=== PATIENT | female | born 1940 | race Caucasian/White ===

== ENCOUNTER 2016-10-06 04:49 | Emergency (ER) | payer MEDICARE ==
[~2016-10-06] VITALS: Ht 144.8 cm; Wt 54.4 kg
[2016-10-06 05:12] VITALS: BP 155/84
--- NOTE | 2016-10-06 05:22 | PHYS DOC ---
Past Medical History Past Medical History: Arthritis, Diabetes-Type II, High Cholesterol, Hypertension Past Surgical History: Appendectomy, Cholecystectomy, Tonsillectomy Alcohol Use: None Drug Use: None Adult General Chief Complaint Chief Complaint: PAIN CONTROL HPI HPI Patient is a 76 year old female who presents with complaint of lower extremity pain. Patient states that she has history of arthritis and has had pain for the past 2 years with both of her legs. Patient denies any recent trauma. Patient states that her legs became more sore over the past 2 days prompting her to come to the emergency department for evaluation. Patient denies any other associated symptoms. Patient states that her pain is currently 10 out of 10. Patient took Tylenol to help with symptoms with no relief. Patient has been ambulatory since onset of pain. Review of Systems Review of Systems Constitutional: Denies fever or chills [] Eyes: Denies change in visual acuity, redness, or eye pain [] HENT: Denies nasal congestion or sore throat [] Respiratory: Denies cough or shortness of breath [] Cardiovascular: No additional information not addressed in HPI [] GI: Denies abdominal pain, nausea, vomiting, bloody stools or diarrhea [] : Denies dysuria or hematuria [] Musculoskeletal: Bilateral lower extremity pain [] Integument: Denies rash or skin lesions [] Neurologic: Denies headache, focal weakness or sensory changes [] Endocrine: Denies polyuria or polydipsia [] Current Medications Current Medications Current Medications Medications (Trade) Dose Ordered Sig/[facility] Start Time Stop Time Status Last Admin Dose Admin Tramadol HCl (Ultram) 50 mg 1X ONCE 10/06/16 05:30 10/06/16 05:32 DC 10/06/16 05:26 50 MG Allergies Allergies Allergies Coded Allergies Type Severity Reaction Last Updated Verified No Known Drug Allergies 10/06/16 No Physical Exam Physical Exam Constitutional: Alert, afebrile, no acute distress. [] HENT: Normocephalic, atraumatic, bilateral external ears normal, oropharynx moist, no oral exudates, nose normal. [] Eyes: PERRLA, EOMI, conjunctiva normal, no discharge. [] Neck: Normal range of motion, no tenderness, supple, no stridor. [] Cardiovascular:Heart rate regular rhythm, no murmur [] Lungs & Thorax: Bilateral breath sounds clear to auscultation [] Abdomen: Bowel sounds normal, soft, no tenderness, no masses, no pulsatile masses. [] Skin: Warm, dry, no erythema, no rash. [] Back: No tenderness, no CVA tenderness. [] Extremities: No obvious deformities to bilateral lower extremities, no significant soft tissue swelling, full range of motion present, mild tenderness along bilateral calves and thigh muscles. [] Neurologic: Alert and oriented X 3, normal motor function, normal sensory function, no focal deficits noted. [] Current Patient Data Vital Signs Vital Signs Date Time Temp Pulse Resp B/P Pulse Ox O2 Delivery O2 Flow Rate FiO2 10/06/16 05:12 97.5 91 20 155/84 100 Room Air 97.5 EKG EKG Not performed [] Radiology/Procedures Radiology/Procedures Not performed [] Course & Med Decision Making Course & Med Decision Making Pertinent Labs and Imaging studies reviewed. (See chart for details) The patient was treated with tramadol in the emergency department. Patient is ambulatory with a nonfocal during gait. Patient has normal pulses in her extremities. Patient's symptoms appear consistent with musculoskeletal pain. The patient will continue on tramadol therapy with recommended follow-up in one week. Advised return to emergency department for any worsening symptoms. Patient voiced understanding and in agreement with treatment plan. Dragon Disclaimer Dragon Disclaimer This electronic medical record was generated, in whole or in part, using a voice recognition dictation system. Departure Departure Impression: Primary Impression: Lower extremity pain, bilateral Disposition: 01 HOME, SELF-CARE Condition: IMPROVED Referrals: NON,STAFF (PCP) Patient Instructions: Arthritis, Nonspecific Additional Instructions: Follow-up with your primary doctor in 1 week. Return to emergency department for any worsening symptoms. Scripts Tramadol Hcl 50 Mg Tablet1 Tab PO Q6HRS PRN PAIN #30 TAB Prov:HANS CARTAGENA MD 10/06/16 HANS CARTAGENA MD Oct 06, 2016 05:21
[2016-10-06] MEDS ORDERED: TRAMADOL 50 MG TABLET. PO ONE (05:30)
[2016-10-06] MEDS ORDERED: TRAM50TA PO (05:34)
== END 2016-10-06 06:10 | disposition home or self-care (01) ==
LOC: ER 04:49
DX: M79.605 Pain in left leg (principal); M79.604 Pain in right leg; M13.88 Other specified arthritis, other site; E11.9 Type 2 diabetes mellitus without complications; E78.00 Pure hypercholesterolemia, unspecified; I10 Essential (primary) hypertension
CPT/HCPCS: 99283

== ENCOUNTER 2016-11-20 21:40 | Inpatient (IN) | payer OTHER ==
[~2016-11-20] VITALS: Ht 149.9 cm; Wt 42.2 kg
[~2016-11-20 21:40] MED LIST: TRAM50TA PO
[2016-11-20 22:29] LABS: BASO % 0 % (0-3); EOS % 0 % (0-3); HEMATOCRIT 50.2 % (36.0-47.0); HEMOGLOBIN 16.6 g/dL (12.0-15.5); LYMPH # 0.4 x10^3/uL (1.0-4.8); LYMPH % 2 % (24-48); MEAN CORPUSCULAR HEMOGLOBIN 31 pg (25-35); MEAN CORPUSCULAR HGB CONC 33 g/dL (31-37); MEAN CORPUSCULAR VOLUME 94 fL (79-100); MONO % 8 % (0-9); NEUT % 90 % (31-73); PLATELET COUNT 392 x10^3/uL (140-400); RED BLOOD COUNT 5.33 x10^6/uL (3.50-5.40); RED CELL DISTRIBUTION WIDTH 15.6 % (11.5-14.5); WHITE BLOOD COUNT 20.1 x10^3/uL (4.0-11.0)
[2016-11-20 22:30] LABS: BILIRUBIN,URINE LARGE (NEG); GLUCOSE,URINE 100 mg/dL (NEG); NITRITE,URINE NEGATIVE (NEG); PROTEIN,URINE 100 mg/dL (NEG-TRACE)
[2016-11-20] MEDS ORDERED: IV NORMAL SALINE 1000ML BAG 1,000 ML IV SCH ×2 (22:30→23:06)
[2016-11-20 22:43] LABS: BACTERIA,URINE 0 /HPF (0-FEW); RBC,URINE OCC /HPF (0-2); SQUAMOUS EPITHELIAL CELL,UR FEW /LPF
[2016-11-20 22:44] LABS: CALCIUM 10.3 mg/dL (8.5-10.1); CREATININE 1.5 mg/dL (0.6-1.0); GFR 33.7; POTASSIUM 3.4 mmol/L (3.5-5.1)
[2016-11-20 22:50] LABS: ALBUMIN 3.2 g/dL (3.4-5.0); DIRECT BILIRUBIN 0.4 mg/dL (0.0-0.2); TOTAL BILIRUBIN 1.3 mg/dL (0.2-1.0); TOTAL PROTEIN 6.7 g/dL (6.4-8.2)
[2016-11-20] MEDS ORDERED: ACETAMINOPHEN 650 MG SUPP.RECT. PR ONE (23:00)
--- NOTE | 2016-11-20 23:02 | RAD ---
PROCEDURE CT head without contrast dated 11/20/2016. HISTORY Altered mental status poor historian. TECHNIQUE Contiguous axial imaging of the head was performed from skull base to vertex.Exposure: One or more of the following individualized dose reduction techniques were utilized for this exam: 1. Automated exposure control. 2. Adjustment of the mA and/or kV according to patient size. 3. Use of iterative reconstruction technique. COMPARISON None. FINDINGS Ventricles and sulci moderately prominent for age. No midline shift or mass effect. Mild to moderate patchy low density in the deep/subcortical periventricular white matter. No hemorrhage or extra-axial collection. Posterior fossa and brainstem unremarkable. Subtotal opacification of the bilateral ethmoid air cells and sphenoid sinuses. Mastoid air cells are clear. No acute calvarial abnormality. IMPRESSION - No evidence of acute intracranial abnormality. - Moderate chronic small vessel ischemic changes and atrophy. Electronically signed by: Robert Conti (Nov 20, 2016 23:00:33)
[2016-11-20] MEDS ORDERED: TOBRAMYCIN PER PHARMACY MC PRN (23:15)
[2016-11-20] MEDS ORDERED: ACETAMINOPHEN 325 MG TABLET. PO PRN (23:15)
[2016-11-20] MEDS ORDERED: ONDANSETRON PF 4 MG/2 ML VIAL. IV PRN (23:15)
--- NOTE | 2016-11-20 23:20 | PHYS DOC ---
Past Medical History Past Medical History: Arthritis, Diabetes-Type II, High Cholesterol, Hypertension Past Surgical History: Appendectomy, Cholecystectomy, Tonsillectomy Alcohol Use: None Drug Use: None Adult General Chief Complaint Chief Complaint: SHORTNESS OF BREATH HPI HPI Patient is a 76 year old female who presents here today secondary to altered mental status while at the group home. According to the nursing facility patient is able to verbalize her name. She is basically alert awake and oriented to self at baseline. She does have a history of dementia. Patient came in today by EMS secondary to altered mental status that started approximately 9: 00 today. Patient does have a history significant for hypertension, no history of COPD, no history of diabetes, Further history is unobtainable secondary to the patient's dementia and unresponsiveness. Physical exam is unobtainable secondary to the patient not following commands. Patient's physical exam was significant for patient moving all extremities well to painful stimuli. Patient has no facial asymmetry. Patient does have poor dentition. Patient's pupils were 4 mm and reactive to 2 mm bilaterally equal. Patient's extraocular motions were all intact. Patient does grimace to painful stimuli. Patient does not follow commands and does not verbalize while in the ER. Patient is tachycardic and heart rate of 135. Utilizing carotid sinus massage the heart rate slowed down to approximately 120 with distinct P waves associated with each QRS complex. Patient does not appear to be in atrial flutter or atrial fibrillation at this time. I believe the patient is an sinus tach secondary to sepsis, pneumonia. Patient ER hospital course was significant for a chest x-ray which reveals a likely left lower lobe infiltrate. She has blunting of her left hemidiaphragm with what appears to be air bronchograms behind the left hemidiaphragm. Asians white count elevated at greater than 20,000 with 90 segs. Patient's lactic acid is greater than 5.0. Patient's troponin was also slightly elevated. While in the ER patient was given a liter of normal saline which has resulted in her heart rate coming down to approximately 1:15. Patient's rectal temperature was 100.2. Patient also given aspirin for her elevated troponin. Patient was started on antibiotics for hcap. Patient was started on Zosyn as well as tobramycin. The case was discussed with Dr. Guajardo who agrees with the current plan. Patient will be admitted to the hospital. Critical care time 35 minutes reutilized and treatment and management of this patient's sepsis, hemodynamic instability with tachycardia. Elevated troponin, elevated lactic acid. Review of Systems Review of Systems Unobtainable secondary to the patient's nonverbal/dementia. Current Medications Current Medications Current Medications Medications (Trade) Dose Ordered Sig/[facility] Start Time Stop Time Status Last Admin Dose Admin Acetaminophen (Tylenol) 650 mg PRN Q4HRS PRN 11/20/16 23:15 11/21/16 23:14 UNV Acetaminophen 650 mg 650 mg 1X ONCE 11/20/16 23:00 11/20/16 23:01 DC Aspirin 300 mg 300 mg 1X ONCE 11/20/16 23:30 11/20/16 23:31 Ondansetron HCl 4 mg 4 mg PRN Q8HRS PRN 11/20/16 23:15 11/21/16 23:14 UNV Piperacillin Sod/ Tazobactam Sod/ Sodium Chloride (Zosyn/Iv Sodium Chloride 0.9% 50ml) 50 ml @ 100 mls/hr Q6HRS 11/21/16 06:00 Piperacillin Sod/ Tazobactam Sod/ Sodium Chloride (Zosyn/Iv Sodium Chloride 0.9% 100ml) 100 ml @ 200 mls/hr 1X ONCE 11/20/16 23:30 11/20/16 23:59 Sodium Chloride (Iv Sodium Chloride 0.9% 1000ml Bag) 1,000 ml @ 100 mls/hr Q10H 11/20/16 23:06 11/21/16 23:05 UNV Tobramycin Sulfate (Nebcin Per Pharmacy) 1 each PRN DAILY PRN 11/20/16 23:15 Allergies Allergies Allergies Coded Allergies Type Severity Reaction Last Updated Verified No Known Drug Allergies 10/06/16 No Physical Exam Physical Exam Constitutional: Cachectic nonresponsive HENT: Normocephalic, atraumatic Eyes: PERRLA, EOMI, conjunctiva normal, no discharge. [] Neck: Normal range of motion, Cardiovascular: Tachycardic at 135 Lungs & Thorax: Coarse breath sounds bilaterally. Abdomen: Bowel sounds normal, soft, no tenderness, no masses, no pulsatile masses. [] Skin: Warm, dry, no erythema, no rash. [] Back: No tenderness, no CVA tenderness. [] Extremities: No tenderness, no cyanosis, no clubbing, ROM intact, no edema. [] Neurologic: Alert and moving all extremities. Psychologic unable to assess. Current Patient Data Vital Signs Vital Signs Date Time Temp Pulse Resp B/P Pulse Ox O2 Delivery O2 Flow Rate FiO2 11/20/16 22:28 100.2 130 24 108/71 93 Room Air 100.2 Lab Values Laboratory Tests Test 11/20/16 22:00 11/20/16 22:15 Urine Collection Type U cath Urine Color Halina Urine Clarity Clear Urine pH 6.0 Urine Specific Robert >=1.030 Urine Protein 100mg/dL (NEG-TRACE) Urine Glucose (UA) 100mg/dL (NEG) Urine Ketones (Stick) 15mg/dL (NEG) Urine Blood Negative (NEG) Urine Nitrite Negative (NEG) Urine Bilirubin Large (NEG) Urine Urobilinogen Dipstick 1.0mg/dL (0.2 mg/dL) Urine Leukocyte Esterase Negative (NEG) Urine RBC Occ/HPF (0-2) Urine WBC 1-4/HPF (0-4) Urine Squamous Epithelial Cells Few/LPF Urine Bacteria 0/HPF (0-FEW) Urine Hyaline Casts Moderate/HPF Urine Mucus Marked/LPF White Blood Count 20.1x10^3/uL (4.0-11.0) H Red Blood Count 5.33x10^6/uL (3.50-5.40) Hemoglobin 16.6g/dL (12.0-15.5) H Hematocrit 50.2% (36.0-47.0) H Mean Corpuscular Volume 94fL (79-100) Mean Corpuscular Hemoglobin 31pg (25-35) Mean Corpuscular Hemoglobin Concent 33g/dL (31-37) Red Cell Distribution Width 15.6% (11.5-14.5) H Platelet Count 392x10^3/uL (140-400) Neutrophils (%) (Auto) 90% (31-73) H Lymphocytes (%) (Auto) 2% (24-48) L Monocytes (%) (Auto) 8% (0-9) Eosinophils (%) (Auto) 0% (0-3) Basophils (%) (Auto) 0% (0-3) Neutrophils # (Auto) 18.1x10^3uL (1.8-7.7) H Lymphocytes # (Auto) 0.4x10^3/uL (1.0-4.8) L Monocytes # (Auto) 1.6x10^3/uL (0.0-1.1) H Eosinophils # (Auto) 0.0x10^3/uL (0.0-0.7) Basophils # (Auto) 0.0x10^3/uL (0.0-0.2) Platelet Estimate Pending Sodium Level 153mmol/L (136-145) H Potassium Level 3.4mmol/L (3.5-5.1) L Chloride Level 110mmol/L (98-107) H Carbon Dioxide Level 18mmol/L (21-32) L Anion Gap 25 (6-14) H Blood Urea Nitrogen 33mg/dL (7-20) H Creatinine 1.5mg/dL (0.6-1.0) H Estimated GFR (Cockcroft-Gault) 33.7 Glucose Level 240mg/dL (70-99) H Lactic Acid Level 5.9mmol/L (0.4-2.0) *H Calcium Level 10.3mg/dL (8.5-10.1) H Total Bilirubin 1.3mg/dL (0.2-1.0) H Direct Bilirubin 0.4mg/dL (0.0-0.2) H Aspartate Amino Transferase (AST) 63U/L (15-37) H Alanine Aminotransferase (ALT) 87U/L (14-59) H Alkaline Phosphatase 122U/L (46-116) H Troponin I Quantitative 0.265ng/mL (0.000-0.055) Total Protein 6.7g/dL (6.4-8.2) Albumin 3.2g/dL (3.4-5.0) L Laboratory Tests 11/20/16 22:15 Laboratory Tests 11/20/16 22:15 EKG EKG [] Radiology/Procedures Radiology/Procedures [] Course & Med Decision Making Course & Med Decision Making Pertinent Labs and Imaging studies reviewed. (See chart for details) [] Dragon Disclaimer Dragon Disclaimer This electronic medical record was generated, in whole or in part, using a voice recognition dictation system. Departure Departure Impression: Primary Impression: Sepsis Additional Impressions: Pneumonia Elevated troponin Elevated lactic acid level HCAP (healthcare-associated pneumonia) Disposition: 09 ADMITTED INPATIENT Admitting Physician: Deny Guajardo Condition: GUARDED Referrals: NO PCP (PCP) Problem Qualifiers JACQUES HAYNES MD Nov 20, 2016 23:20
[2016-11-20] MEDS ORDERED: PIPERACILLIN/TAZOBACTAM 4.5 GM in IV NORMAL SALINE 100ML 100 ML IV ONE (23:30)
[2016-11-20] MEDS ORDERED: ASPIRIN 300 MG SUPP.RECT PR ONE (23:30)
[2016-11-21] VITALS (8 sets, daily range): BP systolic 101–156; BP diastolic 68–99
[2016-11-21] MEDS ORDERED: TOBRAMYCIN SULFATE IV ONE ×2
[2016-11-21] MEDS ORDERED: IV NORMAL SALINE 1000ML BAG 1,000 ML IV SCH
[2016-11-21] MEDS ORDERED: NORMAL SALINE IV ONE ×2
--- NOTE | 2016-11-21 00:11 | ACF ---
Admission Forms Criteria SEPSIS and OTHER FEBRILE ILLNESS, W/O FOCAL INFECTION Clinical Indications for Admission to Inpatient Care ( Place 'X' for any and all applicable criteria): Admission is indicated for ANY ONE of the following (1)(2)(3)(4): [ ] I. Bacteremia [X]II. Suspected or identified specific infection requiring hospitalization (eg, meningitis, endocarditis) [ ]III. Hemodynamic instability [ ]IV. Altered mental status [ ]V. Failure or unavailability of outpatient antimicrobial treatment [ ]. Hypoxemia [ ]VII. Seizures [ ]VIII. High-risk febrile neutropenia [ ]IX. Need for parenteral antibiotic in patient who is likely to abuse vascular access device (eg, injection drug user) [A](7) [ ]X. Temperature greater than 104.9 degrees F (40.5 degrees C) (oral) [ ]XI. Inpatient admission required rather than observation care because of ANY ONE of the following: [ ]1) Specific infection identified that is too severe for outpatient treatment or observation care trial [ ]2) Metabolic disorder (eg, hypoglycemia, hyperglycemia, metabolic acidosis) that is severe or persistent [ ]3) Temperature greater than 103.1 degrees F (39.5 degrees C) ( oral) that is not responsive to observation care treatment [ ]4) IV fluid to replace significant ongoing (eg, for over 24 hours) losses (> 3 L/m2 per day) [ ]5) Supplemental oxygen or respiratory treatments for over 24 hours that is performable only in acute inpatient setting [ ]6) Parenteral nutrition regimen need that must be implemented on inpatient basis [ ]7) Strict or protective (eg, laminar flow) isolation [ ]8) Other condition, treatment or monitoring requiring inpatient admission Extended stay beyond goal length of stay may be needed for(1)(3) [ ]a) Sepsis or septic shock(22) [ ]b) Positive blood cultures [ ]c) Insufficient oral intake [ ]d) High-risk febrile neutropenia(29)(30) [ ]e) Continued fever and clinical instability [ ]f) Clinically active comorbid illness (e.g,heart failure, renal failure , diabetes) The original [employer] content created by [employer] has been revised. The portions of the content which have been revised are identified through the use of italic text or in bold, and [employer] has neither reviewed nor approved the modified material. All other unmodified content is copyright [facility]. Please see references footnoted in the original [facility] edition 2016 Admission Criteria Met?: Yes VICKY CARDENAS Nov 21, 2016 00:11
[2016-11-21 00:24] LABS: BODY TEMP ABG 100.2 DEG; CORRECTED PCO2 ABG 26 mmHg; CORRECTED PH ABG 7.41; CORRECTED PO2 ABG 85 mmHg; HCO3 ABG 16 mmol/L (21-28); SAT O2 ABG 95 % (92-99)
[2016-11-21 00:25] LABS: PCO2 ABG 25 mmHg (35-46); PH ABG 7.43 (7.35-7.45); PO2 ABG 80 mmHg (65-108)
[2016-11-21 00:50] LABS: OBC FLU VALID
[2016-11-21 03:49] LABS: PLT ESTIMATE ADEQUATE (ADEQUATE); TOXIC VACUOLATION SLIGHT
[2016-11-21 05:09] LABS: BASO % 0 % (0-3); EOS % 0 % (0-3); HEMATOCRIT 46.3 % (36.0-47.0); HEMOGLOBIN 14.9 g/dL (12.0-15.5); LYMPH # 0.8 x10^3/uL (1.0-4.8); LYMPH % 5 % (24-48); MEAN CORPUSCULAR HEMOGLOBIN 31 pg (25-35); MEAN CORPUSCULAR HGB CONC 32 g/dL (31-37); MEAN CORPUSCULAR VOLUME 96 fL (79-100); MONO % 11 % (0-9); NEUT % 84 % (31-73); PLATELET COUNT 299 x10^3/uL (140-400); RED BLOOD COUNT 4.82 x10^6/uL (3.50-5.40); RED CELL DISTRIBUTION WIDTH 15.9 % (11.5-14.5); WHITE BLOOD COUNT 17.7 x10^3/uL (4.0-11.0)
[2016-11-21 05:36] LABS: CALCIUM 8.5 mg/dL (8.5-10.1); GFR 53.8
[2016-11-21 05:39] LABS: POTASSIUM 2.6 mmol/L (3.5-5.1)
[2016-11-21] MEDS ORDERED: POTASSIUM CL 30MEQ D5-0.45NACL 1,000 ML IV SCH (06:00)
[2016-11-21] MEDS: PIPERACILLIN/TAZOBACTAM 2.25 GM in IV NORMAL SALINE 50ML 50 ML IV SCH ×3 (06:07→17:06)
--- NOTE | 2016-11-21 06:45 | EKG ---
[facility] [address] [place] [address] Test Date: 2016-11-20 Test Time: 21:50:54 Pat Name: ABISAI LUI Department: Room: 203 1 Gender: F Program Medical Director: : 1940 Requested By: JACQUES HAYNES Order Number: [id number] Reading MD: Jorge L Rubalcava Measurements Intervals [place] Rate: 134 P: 39 OR: 112 QRS: -24 QRSD: 80 T: 143 QT: 292 QTc: 442 Interpretive Statements SINUS TACHYCARDIA VENTRICULAR PREMATURE COMPLEX(ES) LEFT ATRIAL ABNORMALITY LEFTWARD AXIS LVH WITH REPOLARIZATION ABNORMALITY QRS(T) CONTOUR ABNORMALITY CONSISTENT WITH ANTERIOR INFARCT PROBABLY OLD CONSISTENT WITH INFEROLATERAL INFARCT AGE UNDETERMINED RI6.01 Unconfirmed report Electronically Signed On 11-21-2016 14:16:31 [employer] by Jorge L Rubalcava
--- NOTE | 2016-11-21 07:31 | RAD ---
EXAM: Chest one view. HISTORY: Shortness of breath, altered mental status, hypertension. COMPARISON: 03/13/2013. FINDINGS: A frontal view of the chest is obtained. The inspiration is somewhat small with left basilar atelectasis. There is no pneumothorax or pleural effusion. The heart is not enlarged. There are atherosclerotic calcifications of the aorta. Cholecystectomy clips are noted. IMPRESSION: 1. Small inspiration with left basilar atelectasis versus mild infiltrate.
--- NOTE | 2016-11-21 08:46 | PDOC ---
Provider Note Provider Note [id number] LEIGHA LUIS MD Nov 21, 2016 08:46
--- NOTE | 2016-11-21 09:52 | RAD ---
Ultrasound of the right upper quadrant of the abdomen 11/21/2016 Clinical history: Elevated transaminase levels. Technique: A real-time ultrasound examination of the right upper quadrant of the abdomen was performed. Multiple images were obtained. Findings: The liver is normal in size measuring 12.2 cm in length. No focal abnormality of the liver is seen. The gallbladder is not visualized consistent with a cholecystectomy. The common bile duct is within the upper limits of normal given the patient's age and the history of a cholecystectomy measuring 9 mm in diameter. The visualized portions of the pancreas and right kidney are within normal limits. Impression: Status post cholecystectomy. Otherwise negative study.
--- NOTE | 2016-11-21 10:08 | PDOC2 ---
ZOEY OV RN BARIATRIC 11/21/16 1008: CARDIAC CONSULT DATE OF CONSULT Date of Consult DATE: 11/21/16 TIME: 10:07 REASON FOR CONSULT Reason for Consult: elevated troponin REFERRING PHYSICIAN Referring Physician: Dr. Philippe Boston SOURCE Source: Chart review HISTORY OF PRESENT ILLNESS HISTORY OF PRESENT ILLNESS 76 year old female admitted through the ER with dyspnea and altered mental status reported by her nursing facility. Patient non-verbal and without family present. On admission, she had a lactate level of 5.9 with a WBC of 20.1 and K of 2.6. Troponin peaked @ 0.383 and EKG without acute changes, though in atrial fibrillation. Reason for Visit: elevated troponin PAST MEDICAL HISTORY Cardiovascular: HTN, Hyperlipidemia CENTRAL NERVOUS SYSTEM: Dementia GI: Constipation, Other (dysphagia; failure to thrive) Psych: Depression Musculoskeletal: Osteoarthritis, Other (fall history) Endocrine: Diabetes PAST SURGICAL HISTORY Past Surgical History: Appendectomy, Cholecystectomy, Tonsillectomy FAMILY HISTORY Family History: Family History Unknown SOCIAL HISTORY Lives: Jail ([facility]) CURRENT MEDICATIONS CURRENT MEDICATIONS Current Medications Medications (Trade) Dose Ordered Sig/Kip Route PRN Reason Start Time Stop Time Status Last Admin Dose Admin Sodium Chloride (Iv Sodium Chloride 0.9% 1000ml Bag) 1,000 ml @ 1,000 mls/hr Q1H IV 11/20/16 22:30 11/20/16 23:29 DC 11/20/16 22:24 Acetaminophen 650 mg 650 mg 1X ONCE MA 11/20/16 23:00 11/20/16 23:01 DC 11/20/16 23:29 Piperacillin Sod/ Tazobactam Sod/ Sodium Chloride (Zosyn/Iv Sodium Chloride 0.9% 100ml) 100 ml @ 200 mls/hr 1X ONCE IV 11/20/16 23:30 11/20/16 23:59 DC 11/20/16 23:30 Tobramycin Sulfate (Nebcin Per Pharmacy) 1 each PRN DAILY PRN MC SEE COMMENTS 11/20/16 23:15 11/21/16 03:25 Aspirin 300 mg 300 mg 1X ONCE MA 11/20/16 23:30 11/20/16 23:31 DC 11/20/16 23:29 Piperacillin Sod/ Tazobactam Sod 2.25 gm/Sodium Chloride 50 ml @ 100 mls/hr Q6HRS IV 11/21/16 06:00 11/21/16 06:07 Sodium Chloride 1,000 ml @ 100 mls/hr Q10H IV 11/20/16 23:06 11/21/16 05:43 DC 11/21/16 02:54 Tobramycin Sulfate 250 mg/ Sodium Chloride 106.25 ml @ 106.25 mls/hr 1X ONCE IV 11/21/16 00:00 11/21/16 00:59 DC 11/20/16 23:31 Sodium Chloride 1,000 ml @ 620 mls/hr Q1H37M IV 11/21/16 00:00 11/21/16 01:00 DC 11/21/16 00:00 Potassium Chloride/Dextrose/ Sod Cl (KCl 30meq In D5-0.45nacl) 1,000 ml @ 75 mls/hr [id number] IV 11/21/16 06:00 11/21/16 08:44 DC 11/21/16 06:08 ALLERGIES ALLERGIES: Coded Allergies: No Known Drug Allergies (Unverified , 10/06/16) ROS Review of System unobtainable as non-verbal PHYSICAL EXAM General: Alert, Other (frail, elderly) HEENT: Atraumatic, Other (poor dentition) Lungs: Other (decreased in bases anteriorly) Heart: Normal S1, Normal S2, No murmurs, Other (IRRR; tele: PAF with RVR) Abdomen: Soft Extremities: No edema Skin: No rashes Neuro: Other (non-verbal) Psych/Mental Status: Other (unable to assess) MUSCULOSKELETAL: Osteoarthritic changes both hands VITALS VITALS Vital Signs Date Time Temp Pulse Resp B/P Pulse Ox O2 Delivery O2 Flow Rate FiO2 11/21/16 09:35 Room Air 11/21/16 07:00 97.9 119 20 136/73 96 2.0 97.9 LABS Lab: Laboratory Tests Test 11/20/16 22:00 11/20/16 22:15 11/21/16 00:04 11/21/16 00:15 Urine Collection Type U cath Urine Color Halina Urine Clarity Clear Urine pH 6.0 Urine Specific [place] >=1.030 Urine Protein 100mg/dL (NEG-TRACE) Urine Glucose (UA) 100mg/dL (NEG) Urine Ketones (Stick) 15mg/dL (NEG) Urine Blood Negative (NEG) Urine Nitrite Negative (NEG) Urine Bilirubin Large (NEG) Urine Urobilinogen Dipstick 1.0mg/dL (0.2 mg/dL) Urine Leukocyte Esterase Negative (NEG) Urine RBC Occ/HPF (0-2) Urine WBC 1-4/HPF (0-4) Urine Squamous Epithelial Cells Few/LPF Urine Bacteria 0/HPF (0-FEW) Urine Hyaline Casts Moderate/HPF Urine Mucus Marked/LPF White Blood Count 20.1x10^3/uL (4.0-11.0) Red Blood Count 5.33x10^6/uL (3.50-5.40) Hemoglobin 16.6g/dL (12.0-15.5) Hematocrit 50.2% (36.0-47.0) Mean Corpuscular Volume 94fL (79-100) Mean Corpuscular Hemoglobin 31pg (25-35) Mean Corpuscular Hemoglobin Concent 33g/dL (31-37) Red Cell Distribution Width 15.6% (11.5-14.5) Platelet Count 392x10^3/uL (140-400) Neutrophils (%) (Auto) 90% (31-73) Lymphocytes (%) (Auto) 2% (24-48) Monocytes (%) (Auto) 8% (0-9) Eosinophils (%) (Auto) 0% (0-3) Basophils (%) (Auto) 0% (0-3) Neutrophils # (Auto) 18.1x10^3uL (1.8-7.7) Lymphocytes # (Auto) 0.4x10^3/uL (1.0-4.8) Monocytes # (Auto) 1.6x10^3/uL (0.0-1.1) Eosinophils # (Auto) 0.0x10^3/uL (0.0-0.7) Basophils # (Auto) 0.0x10^3/uL (0.0-0.2) Segmented Neutrophils % 92% (35-66) Band Neutrophils % 1% (0-9) Lymphocytes % 2% (24-48) Monocytes % 5% (0-10) Toxic Vacuolation Slight Platelet Estimate Adequate (ADEQUATE) Sodium Level 153mmol/L (136-145) Potassium Level 3.4mmol/L (3.5-5.1) Chloride Level 110mmol/L (98-107) Carbon Dioxide Level 18mmol/L (21-32) Anion Gap 25 (6-14) Blood Urea Nitrogen 33mg/dL (7-20) Creatinine 1.5mg/dL (0.6-1.0) Estimated GFR (Cockcroft-Gault) 33.7 Glucose Level 240mg/dL (70-99) Lactic Acid Level 5.9mmol/L (0.4-2.0) Calcium Level 10.3mg/dL (8.5-10.1) Total Bilirubin 1.3mg/dL (0.2-1.0) Direct Bilirubin 0.4mg/dL (0.0-0.2) Aspartate Amino Transf (AST/SGOT) 63U/L (15-37) Alanine Aminotransferase (ALT/SGPT) 87U/L (14-59) Alkaline Phosphatase 122U/L (46-116) Troponin I Quantitative 0.265ng/mL (0.000-0.055) Total Protein 6.7g/dL (6.4-8.2) Albumin 3.2g/dL (3.4-5.0) O2 Saturation 95% (92-99) Arterial Blood pH 7.43 (7.35-7.45) Arterial Blood pH (Temp corrected) 7.41 Arterial Blood pCO2 at Patient Temp 25mmHg (35-46) Arterial Blood pCO2 (Temp correct) 26mmHg Arterial Blood pO2 at Patient Temp 80mmHg (65-108) Arterial Blood pO2 (Temp corrected) 85mmHg Arterial Blood HCO3 16mmol/L (21-28) Arterial Blood Base Excess -6mmol/L (-3-3) FiO2 28.0 Influenza Type A Antigen Negative (NEGATIVE) Influenza Type B Antigen Negative (NEGATIVE) Test 11/21/16 01:30 11/21/16 04:55 Lactic Acid Level 2.7mmol/L (0.4-2.0) White Blood Count 17.7x10^3/uL (4.0-11.0) Red Blood Count 4.82x10^6/uL (3.50-5.40) Hemoglobin 14.9g/dL (12.0-15.5) Hematocrit 46.3% (36.0-47.0) Mean Corpuscular Volume 96fL (79-100) Mean Corpuscular Hemoglobin 31pg (25-35) Mean Corpuscular Hemoglobin Concent 32g/dL (31-37) Red Cell Distribution Width 15.9% (11.5-14.5) Platelet Count 299x10^3/uL (140-400) Neutrophils (%) (Auto) 84% (31-73) Lymphocytes (%) (Auto) 5% (24-48) Monocytes (%) (Auto) 11% (0-9) Eosinophils (%) (Auto) 0% (0-3) Basophils (%) (Auto) 0% (0-3) Neutrophils # (Auto) 14.9x10^3uL (1.8-7.7) Lymphocytes # (Auto) 0.8x10^3/uL (1.0-4.8) Monocytes # (Auto) 2.0x10^3/uL (0.0-1.1) Eosinophils # (Auto) 0.0x10^3/uL (0.0-0.7) Basophils # (Auto) 0.0x10^3/uL (0.0-0.2) Sodium Level 152mmol/L (136-145) Potassium Level 2.6mmol/L (3.5-5.1) Chloride Level 117mmol/L (98-107) Carbon Dioxide Level 20mmol/L (21-32) Anion Gap 15 (6-14) Blood Urea Nitrogen 27mg/dL (7-20) Creatinine 1.0mg/dL (0.6-1.0) Estimated GFR (Cockcroft-Gault) 53.8 Glucose Level 183mg/dL (70-99) Calcium Level 8.5mg/dL (8.5-10.1) Troponin I Quantitative 0.383ng/mL (0.000-0.055) IMAGES IMAGES CXR: FINDINGS: A frontal view of the chest is obtained. The inspiration is somewhat small with left basilar atelectasis. There is no pneumothorax or pleural effusion. The heart is not enlarged. There are atherosclerotic calcifications of the aorta. Cholecystectomy clips are noted. IMPRESSION: 1. Small inspiration with left basilar atelectasis versus mild infiltrate. EKG EKG no acute changes ASSESSMENT/PLAN ASSESSMENT/PLAN 1. NSTEMI, likely demand mediated in the setting of elevated lactate level with ? of pneumonia ASA supp in ER yesterday evening; start QHS for now low dose beta-blockers IV echo to evaluate LV function and assess for valvular heart disease given current functional capacity, not a candidate for aggressive intervention 2. PAF with RVR ? new; occurring in the setting of hypokalemia and hypomagnesemia rate control with IV beta-blockers [id number] = 5 corresponding to high risk (6.7%) of stroke however, with fall risk, poor functional capacity - will use aspirin, full strength, for now 3. HTN controlled 4. dementia with history of failure to thrive 5. DM, II per primary service Problems: LIANNE NEVES MD 11/21/16 2237: CARDIAC CONSULT ALLERGIES ALLERGIES: Coded Allergies: No Known Drug Allergies (Unverified , 10/06/16) ASSESSMENT/PLAN ASSESSMENT/PLAN Pt. seen and examined. Agree with above FACILITY SUPERVISOR note. 76 y.o woman with acute mental status changes and sepsis syndrome. On cardiac exam she is tachycardic Has tonic clonic movements. Appears to respond to one step commands at times. labs/meds reviewed. supportive care. No further cardiac testing unless new input from family at which point, could consider non-invasive stress testing. limited echo images due to poor pt. tolerance, consider repeat limited echo when more stable. consider neurology eval to r/o seizures etc. Thanks for consult. Will follow along. Poor prognosis overall. Problems: ZOEY VO APRN Nov 21, 2016 10:08 LIANNE NEVES MD Nov 21, 2016 22:37
[2016-11-21] MEDS ORDERED: MAGNESIUM SULFATE 2GM 50 ML IV ONE (11:00)
[2016-11-21] MEDS: POTASSIUM CL 20MEQ D5-0.9%NACL 1,000 ML IV SCH ×2 (11:06→21:53)
[2016-11-21] MEDS: METOPROLOL TARTRATE 5 MG/5 ML VIAL. IVP SCH ×2 (11:10→17:16)
[2016-11-21] MEDS ORDERED: SULFUR HEXAFLUORIDE MICROSPHR 25 MG VIAL. IVP ONE ×2 (11:14→16:15)
[2016-11-21] MEDS ORDERED: TOBRAMYCIN RANDOM LEVEL. MC ONE (12:00)
--- NOTE | 2016-11-21 12:49 | HP ---
ADMIT DATE: 11/21/2016 CHIEF COMPLAINT: Weakness, confusion, and fever. HISTORY OF PRESENT ILLNESS: A 76-year-old white female, patient of Dr. Delgadillo, who is in a assisted, has no medical records or history available. She was brought because of poor responsiveness and some fever. Chest x-ray was clear. There was no obvious source of fever, and urine was unremarkable as well. She was given some tobramycin and Zosyn, and IV fluids were started, and she remains poorly responsive. PAST MEDICAL HISTORY: No records available. ALLERGIES: No allergies known. MEDICATIONS: The only medication listed was tramadol. SOCIAL HISTORY: Unknown, lives in a assisted. FAMILY HISTORY: Unknown. REVIEW OF SYSTEMS: No other known problems. OBJECTIVE: ENT: Poor dentition with some teeth missing. Mouth is very dry. Pupils were round and reactive. EOM is full. NECK: Revealed no carotid bruits, nodes, or thyroid enlargement. CARDIOVASCULAR: Mild tachycardia. Regular rate. No irregular beat or murmur. ABDOMEN: Soft, benign, and nontender. BACK: Nontender to the flanks. EXTREMITIES: Skin turgor decreased. Pedal pulses are mildly decreased. SKIN: Very dry. NEUROLOGIC: She is nonverbal, does not respond to commands. Moves all extremities, does not respond well to pain. GENITOURINARY AND RECTAL: Deferred. LABORATORY DATA: Laboratory study showed hypernatremia, hypokalemia, and some prerenal azotemia as well. ASSESSMENT: Low-grade fever and evidence of dehydration with hypernatremia and hypokalemia. 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 PLAN: Continue hydration, potassium replacement, and supportive care with Zosyn for now. Pending cultures. LEIGHA LUIS MD DR: JOSELYN/sylvia JOB#: [id number] / [id number]
--- NOTE | 2016-11-21 16:21 | CARD ---
APPROVED REPORT EXAM: Two-dimensional and M-mode echocardiogram with Doppler and color Doppler. Other Information Quality : GoodHR: 81bpm Rhythm : NSR INDICATION Elevated troponin Echo Enhancing Agent Agent/Amount Used: Lumason 3mL 2D DIMENSIONS RVDd2.1 (2.9-3.5cm)Left Atrium(2D)2.6 (1.6-4.0cm) IVSd1.2 (0.7-1.1cm)Aortic Root(2D)2.7 (2.0-3.7cm) LVDd2.9 (3.9-5.9cm)LVOT Diameter2.2 (1.8-2.4cm) PWd1.3 (0.7-1.1cm)LVDs2.2 (2.5-4.0cm) FS (%) 24.3 %SV15.9 ml LVEF(%)50.1 (>50%) Aortic Valve AoV Peak Jassi.225.0cm/sAoV VTI36.9cm AO Peak GR.20.3mmHgLVOT Peak Jassi.119.4cm/s AO Mean GR.8mmHgAVA (VMAX)2.00cm2 AI P 1/2 Ptqm224qx Mitral Valve MV E Peak Gr.10mmHgMV E Mean Gr.2mmHg MV A [id number] Pulmonary Valve PV Peak Yiymvykn575.5cm/s Pulmonary Vein S1 Yplkhmew73.6cm/sD2 Arvakuif35.7cm/s PVa [id number] LEFT VENTRICLE The left ventricle is normal size. There is mild concentric left ventricular hypertrophy. Overall romina ges are suboptimal. Suspect near normal LV function. EF 50%. The distal LV is moderately hypokinetic. Transmitral Doppler flow pattern is Grade I-abnormal relaxation pattern. Suspicious apical echoes ar e noted. Cannot rule out associated thrombus vs. prominent papillary muscle. RIGHT VENTRICLE The right ventricle is normal size. The right ventricular systolic function is normal. ATRIA Not well visualized. AORTIC VALVE The aortic valve is moderately sclerotic and not well visualized. Doppler and Color Flow revealed mil d aortic regurgitation. Doppler and color-flow analysis revealed no significant aortic stenosis. MITRAL VALVE The mitral valve leaflets are thickened. There is no mitral valve stenosis. Doppler and Color Flow re vealed mild mitral regurgitation. TRICUSPID VALVE Not well visualized. Doppler and Color Flow revealed no tricuspid valve regurgitation noted. There is no tricuspid valve stenosis. PULMONIC VALVE The pulmonic valve is not well visualized. Doppler and Color Flow revealed no pulmonic valvular regur gitation. There is no pulmonic valvular stenosis. GREAT VESSELS The aortic root is normal in size. The IVC is normal in size and collapses >50% with inspiration. PERICARDIAL EFFUSION There is no evidence of significant pericardial effusion. Critical Notification Critical Value: No <Conclusion> Overall images are suboptimal. Suspect near normal LV function. EF 50%. The distal LV is moderately hypokinetic. Suspicious apical echoes are noted. Cannot rule out associated thrombus vs. prominent papillary musc le. No clear valvular abnormalities.
[2016-11-21] MEDS ORDERED: ASPIRIN 300 MG SUPP.RECT PR SCH (21:00)
[2016-11-22] MEDS: METOPROLOL TARTRATE 5 MG/5 ML VIAL. IVP SCH ×5 (00:18→23:40)
[2016-11-22] MEDS: PIPERACILLIN/TAZOBACTAM 2.25 GM in IV NORMAL SALINE 50ML 50 ML IV SCH ×3 (00:19→12:32)
[2016-11-22] MEDS: POTASSIUM CL 20MEQ D5-0.9%NACL 1,000 ML IV SCH ×2 (00:45→09:20)
[2016-11-22 03:20] VITALS: BP 170/92
[2016-11-22 07:00] VITALS: BP 184/111
--- NOTE | 2016-11-22 08:40 | PDOC ---
Provider Note Provider Note vss, fair output- K+ 3.3- echo ef 50%- more awake but nonverbal, moves all extrems- no gb on sono- will cintinue hydration re hypernatremia, allow diet- no intervention re dementia baseline LEIGHA LUIS MD Nov 22, 2016 08:40
[2016-11-22 11:00] VITALS: BP 184/98
[2016-11-22 11:22] LABS: CALCIUM 8.3 mg/dL (8.5-10.1); CREATININE 0.6 mg/dL (0.6-1.0); GFR 96.9
--- NOTE | 2016-11-22 11:22 | PDOC ---
ZOEY VO PATCH SANDER 11/22/16 1122: CARDIO Progress Notes Date and Time Date of Service 11/22/2016 Time of Evaluation 1113 Subjective Subjective: Other (non-verbal; turned head in response to name) Vitals Vitals Vital Signs Date Time Temp Pulse Resp B/P Pulse Ox O2 Delivery O2 Flow Rate FiO2 11/22/16 08:00 Nasal Cannula 2.0 11/22/16 07:00 97.4 83 18 184/111 97 97.4 Weight Weight [ ] Input and Output Intake and Output Intake and Output 11/22/16 07:00 Intake Total 100 ml Balance 100 ml Intake Oral 0 ml IV Total 100 ml # Voids 8 Laboratory Labs Laboratory Tests Test 11/21/16 15:50 Potassium Level 3.3mmol/L (3.5-5.1) Microbiology Micro Microbiology 11/20/16 Blood Culture - Preliminary, Resulted NO GROWTH AFTER 1 DAY Physical Exam HEENT: Neck Supple W Full Motion Chest: Symmetric LUNGS: Other (decreased bases anteriorly) Heart: S1S2, irregularly irregular, other (tele: SR with PAF/atrial flutter) Extremities: No Edema Neurology: alert Diagnostic Tests Echocardiogram: Other (LVEF 50%; moderate LV hypokinesis; can not rule out apical thrombus vs prominent papillary muscle) Assessment Assessment 1. NSTEMI, likely demand mediated continue ASA and IV beta-blockers echo with LVEF of 50% and moderately hypokinetic distal LV no further cardiac evaluation planned unless requested by family; patient with poor functional capacity 2. PAF with RVR ? new; occurring in the setting of hypokalemia and hypomagnesemia - Mg replaced; unable to aggressively replace K due to lack of central line and NPO status repeat labs in a.m. rate control with IV beta-blockers [id number] = 5 corresponding to high risk (6.7%) of stroke however, with fall risk, poor functional capacity - will use aspirin, full strength, for now 3. HTN controlled 4. dementia with history of failure to thrive 5. pneumonia abx per primary service LIANNE NEVES MD 11/23/16 1053: CARDIO Progress Notes Plan Plan Late entry for 11/22/2016 Pt. seen and examined. Agree with above PARENT AIDE note. no acute events overnight. still without appropriate mentation supportive care from CV perspective. will be available for any further issues. thx for consult ZOEY VO APRN Nov 22, 2016 11:22 LIANNE NEVES MD Nov 23, 2016 10:53
[2016-11-22 11:25] LABS: POTASSIUM 2.8 mmol/L (3.5-5.1)
[2016-11-22 12:05] LABS: DIRECT BILIRUBIN 0.3 mg/dL (0.0-0.2); TOTAL PROTEIN 6.2 g/dL (6.4-8.2)
[2016-11-22] MEDS: ASPIRIN 81 MG TAB.CHEW PO SCH (12:26)
[2016-11-22] MEDS ORDERED: POTASSIUM CL 30MEQ D5-0.45NACL 1,000 ML IV SCH (12:41)
[2016-11-22] MEDS: POTASSIUM CHLORIDE 30 MEQ in IV DEXTROSE 5 %-0.45 % NACL 1,000 ML IV SCH ×2 (14:01→22:28)
[2016-11-22 15:00] VITALS: BP 172/82
[2016-11-22] MEDS: PIPERACILLIN/TAZOBACTAM 3.375 GM in IV NORMAL SALINE 50ML 50 ML IV SCH ×2 (17:54→23:40)
[2016-11-22 19:15] VITALS: BP 148/79
[2016-11-22] MEDS ORDERED: NORMAL SALINE IV SCH (23:00)
[2016-11-22] MEDS ORDERED: TOBRAMYCIN SULFATE IV SCH (23:00)
[2016-11-22 23:15] VITALS: BP 166/75
[2016-11-23 03:00] VITALS: BP 168/84
[2016-11-23] MEDS: POTASSIUM CHLORIDE 30 MEQ in IV DEXTROSE 5 %-0.45 % NACL 1,000 ML IV SCH ×2 (06:00→18:29)
[2016-11-23] MEDS: PIPERACILLIN/TAZOBACTAM 3.375 GM in IV NORMAL SALINE 50ML 50 ML IV SCH (06:01)
[2016-11-23] MEDS: METOPROLOL TARTRATE 5 MG/5 ML VIAL. IVP SCH (06:02)
[2016-11-23 07:00] VITALS: BP 151/77
--- NOTE | 2016-11-23 08:29 | PDOC ---
Provider Note Provider Note vss, no temp, bp ok- still poor po but more alert- bmp noted- cultures neg- TAs better also- reduce iv fluid, po as tolerated LEIGHA LUIS MD Nov 23, 2016 08:28
[2016-11-23] MEDS: ASPIRIN 81 MG TAB.CHEW PO SCH (08:49)
[2016-11-23 09:52] LABS: ALBUMIN 2.2 g/dL (3.4-5.0); ALBUMIN/GLOBULIN RATIO 0.7 (1.0-1.7); CALCIUM 7.7 mg/dL (8.5-10.1); CREATININE 0.6 mg/dL (0.6-1.0); GFR 96.9; POTASSIUM 3.6 mmol/L (3.5-5.1); TOTAL BILIRUBIN 0.8 mg/dL (0.2-1.0); TOTAL PROTEIN 5.3 g/dL (6.4-8.2)
--- NOTE | 2016-11-23 10:04 | PDOC ---
CARDIO Progress Notes Date and Time Date of Service 11/23/2016 Time of Evaluation 1004 Subjective Subjective: Other (more awake and alert today but remains non-verbal) Vitals Vitals Vital Signs Date Time Temp Pulse Resp B/P Pulse Ox O2 Delivery O2 Flow Rate FiO2 11/23/16 07:00 97.7 82 20 151/77 96 Room Air 97.7 11/23/16 03:00 2.0 Weight Weight [ ] Input and Output Intake and Output Intake and Output 11/23/16 07:00 Intake Total 1010 ml Balance 1010 ml Intake Oral 60 ml IV Total 950 ml # Voids 9 Laboratory Labs Laboratory Tests Test 11/22/16 20:43 11/23/16 03:05 Glucose (Fingerstick) 173mg/dL (70-99) Sodium Level 143mmol/L (136-145) Potassium Level 3.6mmol/L (3.5-5.1) Chloride Level 109mmol/L (98-107) Carbon Dioxide Level 25mmol/L (21-32) Anion Gap 9 (6-14) Blood Urea Nitrogen 6mg/dL (7-20) Creatinine 0.6mg/dL (0.6-1.0) Estimated GFR (Cockcroft-Gault) 96.9 BUN/Creatinine Ratio 10 (6-20) Glucose Level 167mg/dL (70-99) Calcium Level 7.7mg/dL (8.5-10.1) Magnesium Level 1.7mg/dL (1.8-2.4) Total Bilirubin 0.8mg/dL (0.2-1.0) Aspartate Amino Transf (AST/SGOT) 26U/L (15-37) Alanine Aminotransferase (ALT/SGPT) 50U/L (14-59) Alkaline Phosphatase 77U/L (46-116) Total Protein 5.3g/dL (6.4-8.2) Albumin 2.2g/dL (3.4-5.0) Albumin/Globulin Ratio 0.7 (1.0-1.7) Microbiology Micro Microbiology 11/20/16 Blood Culture - Preliminary, Resulted NO GROWTH AFTER 2 DAYS Physical Exam HEENT: Neck Supple W Full Motion Chest: Symmetric LUNGS: Clear to Auscultation Heart: S1S2, irregularly irregular, other (tele: SR with PAF/atrial flutter) Abdomen: Soft N/T Extremities: No Edema Neurology: alert, non-verbal Diagnostic Tests Echocardiogram: Other (LVEF 50%; moderate LV hypokinesis; can not rule out apical thrombus vs prominent papillary muscle) Assessment Assessment 1. NSTEMI, likely demand mediated continue ASA and convert to oral beta-blockers echo with LVEF of 50% and moderately hypokinetic distal LV no further cardiac evaluation planned unless requested by family; patient with poor functional capacity 2. PAF with RVR ? new; occurring in the setting of hypokalemia and hypomagnesemia; electrolyte replacement remains rate control beta-blockers [id number] = 5 corresponding to high risk (6.7%) of stroke however, with fall risk, poor functional capacity - will use aspirin, full strength, for now convert ASA 81 mg to 325 mg daily 3. HTN controlled 4. dementia with history of failure to thrive 5. pneumonia abx per primary service Will follow peripherally Please contact for further assistance ZOEY VO APRN Nov 23, 2016 10:04
[2016-11-23 10:27] VITALS: BP 157/83
[2016-11-23] MEDS ORDERED: MAGNESIUM SULFATE 2GM 50 ML IV ONE (11:00)
[2016-11-23] MEDS: METOPROLOL TART IMMED RELEASE 25 MG TABLET PO SCH ×2 (11:02→22:10)
[2016-11-23] MEDS ORDERED: ACET325T9 PO (12:29)
[2016-11-23] MEDS ORDERED: DICL100G7 TP (12:29)
[2016-11-23] MEDS ORDERED: CITA10TA4 PO (12:29)
[2016-11-23] MEDS ORDERED: MEGE400O PO (12:29)
[2016-11-23] MEDS ORDERED: SENN8.6T99 PO (12:29)
[2016-11-23] MEDS ORDERED: LISI10TA2 PO (12:29)
[2016-11-23 14:43] VITALS: BP 145/65
[2016-11-23 19:52] VITALS: BP 129/69
[2016-11-23] MEDS: AMOXICILLIN/CLAV 400MG/57MG 5 ML ORAL.SUSP. PO SCH (22:09)
[2016-11-23 22:41] VITALS: BP 155/82
[2016-11-24 03:37] VITALS: BP 166/75
[2016-11-24 07:00] VITALS: BP 158/83
[2016-11-24] MEDS: AMOXICILLIN/CLAV 400MG/57MG 5 ML ORAL.SUSP. PO SCH ×2 (09:25→21:48)
[2016-11-24] MEDS: METOPROLOL TART IMMED RELEASE 25 MG TABLET PO SCH ×2 (09:26→21:48)
[2016-11-24] MEDS: ASPIRIN 325 MG TABLET PO SCH (09:26)
[2016-11-24 10:22] VITALS: BP 162/90
[2016-11-24 15:03] VITALS: BP 183/82
[2016-11-24] MEDS: POTASSIUM CHLORIDE 30 MEQ in IV DEXTROSE 5 %-0.45 % NACL 1,000 ML IV SCH (19:20)
[2016-11-24 20:15] VITALS: BP 132/74
[2016-11-24 23:41] VITALS: BP 155/83
[2016-11-25 04:40] VITALS: BP 188/97
[2016-11-25 07:45] VITALS: BP 223/106
[2016-11-25] MEDS: METOPROLOL TART IMMED RELEASE 25 MG TABLET PO SCH ×2 (08:05→20:59)
[2016-11-25] MEDS: ASPIRIN 325 MG TABLET PO SCH (08:05)
[2016-11-25] MEDS: AMOXICILLIN/CLAV 400MG/57MG 5 ML ORAL.SUSP. PO SCH ×2 (08:09→20:59)
[2016-11-25 10:59] VITALS: BP 183/95
[2016-11-25 15:29] VITALS: BP 179/93
[2016-11-25] MEDS: POTASSIUM CHLORIDE 30 MEQ in IV DEXTROSE 5 %-0.45 % NACL 1,000 ML IV SCH (17:58)
[2016-11-25 19:05] VITALS: BP 136/72
[2016-11-25 19:14] LABS: BASO # 0.1 x10^3/uL (0.0-0.2); BASO % 0 % (0-3); EOS % 2 % (0-3); HEMOGLOBIN 15.5 g/dL (12.0-15.5); LYMPH # 1.5 x10^3/uL (1.0-4.8); LYMPH % 11 % (24-48); MEAN CORPUSCULAR HEMOGLOBIN 31 pg (25-35); MEAN CORPUSCULAR HGB CONC 33 g/dL (31-37); MEAN CORPUSCULAR VOLUME 93 fL (79-100); MONO % 9 % (0-9); NEUT % 78 % (31-73); PLATELET COUNT 281 x10^3/uL (140-400); RED BLOOD COUNT 5.04 x10^6/uL (3.50-5.40); RED CELL DISTRIBUTION WIDTH 15.2 % (11.5-14.5); WHITE BLOOD COUNT 13.2 x10^3/uL (4.0-11.0)
[2016-11-25 19:21] LABS: CALCIUM 8.7 mg/dL (8.5-10.1); CREATININE 0.5 mg/dL (0.6-1.0); GFR 119.6; POTASSIUM 4.3 mmol/L (3.5-5.1)
[2016-11-25 23:39] VITALS: BP 127/72
[2016-11-26 03:00] VITALS: BP 145/61
[2016-11-26 07:15] VITALS: BP 172/79
[2016-11-26] MEDS: ASPIRIN 325 MG TABLET PO SCH (08:25)
[2016-11-26] MEDS: AMOXICILLIN/CLAV 400MG/57MG 5 ML ORAL.SUSP. PO SCH (08:26)
[2016-11-26] MEDS: METOPROLOL TART IMMED RELEASE 25 MG TABLET PO SCH (08:29)
[2016-11-26 10:15] VITALS: BP 149/84
--- NOTE | 2016-11-26 11:26 | PDOC ---
GENERAL General: vss and afebrile. awake and alert and non verbal. wbc decreased to 13K. arf has resolved as well as hypokalemia. no further reported a-fib. can go back to long term on usual meds and one more week of augmentin. see dc summary. Problems: VITAL SIGNS Vital Signs: Vital Signs Date Time Temp Pulse Resp B/P Pulse Ox O2 Delivery O2 Flow Rate FiO2 11/26/16 10:15 98.2 62 22 149/84 96 Room Air 98.2 11/26/16 08:00 2.0 I & O I & O Intake and Output 11/26/16 07:00 Intake Total 650 ml Balance 650 ml Intake Oral 50 ml IV Total 600 ml # Voids 3 ALLERGIES Allergies: Allergies Coded Allergies Type Severity Reaction Last Updated Verified No Known Drug Allergies 10/06/16 No MEDS Medications: Current Medications Medications (Trade) Dose Ordered Sig/Kpi Start Time Stop Time Status Last Admin Dose Admin Acetaminophen 650 mg 650 mg PRN Q4HRS PRN 11/20/16 23:15 11/21/16 23:14 DC Amoxicillin/ Clavulanate Potassium (Augmentin 400-57mg/5ml Susp) 5 ml Q12HR 11/23/16 21:00 11/26/16 08:26 5 ML Aspirin (Aspirin) 300 mg HS 11/21/16 21:00 11/22/16 08:41 DC 11/21/16 21:52 300 MG Aspirin (Alberto Aspirin) 325 mg [id number] 11/24/16 08:00 11/26/16 08:25 325 MG Aspirin 81 mg 81 mg [id number] 11/22/16 12:00 11/23/16 10:04 DC 11/23/16 08:49 81 MG Magnesium Sulfate/ Dextrose 50 ml @ 25 mls/hr 1X ONCE 11/23/16 11:00 11/23/16 12:59 DC 11/23/16 11:03 25 MLS/HR Magnesium Sulfate/ Dextrose (Magnesium Sulfate PREMIX 2GM) 50 ml @ 25 mls/hr 1X ONCE 11/21/16 11:00 11/21/16 12:59 DC 11/21/16 12:22 25 MLS/HR Metoprolol Tartrate 2.5 mg 2.5 mg Q6HRS 11/21/16 12:00 11/23/16 10:04 DC 11/23/16 06:02 2.5 MG Metoprolol Tartrate 25 mg 25 mg BID 11/23/16 10:30 11/26/16 08:29 25 MG Ondansetron HCl 4 mg 4 mg PRN Q8HRS PRN 11/20/16 23:15 11/21/16 23:14 DC Piperacillin Sod/ Tazobactam Sod/ Sodium Chloride (Zosyn/Iv Sodium Chloride 0.9% 50ml) 50 ml @ 100 mls/hr Q6HRS 11/22/16 18:00 11/23/16 08:30 DC 11/23/16 06:01 100 MLS/HR Piperacillin Sod/ Tazobactam Sod/ Sodium Chloride (Zosyn/Iv Sodium Chloride 0.9% 100ml) 100 ml @ 200 mls/hr 1X ONCE 11/20/16 23:30 11/20/16 23:59 DC 11/20/16 23:30 200 MLS/HR Potassium Chloride 30 meq/ Dextrose/Sodium Chloride 1,015 ml @ 50 mls/hr [id number] 11/22/16 13:30 11/23/16 17:40 DC 11/23/16 06:00 125 MLS/HR Potassium Chloride/Dextrose/ Sod Cl 1,000 ml @ 125 mls/hr Q8H 11/22/16 12:41 11/22/16 12:50 DC Potassium Chloride/Dextrose/ Sod Cl (KCl 20 Meq In D5W-NS) 1,000 ml @ 125 mls/hr Q8H 11/21/16 08:45 11/22/16 12:48 DC 11/22/16 09:20 125 MLS/HR Potassium Chloride/Dextrose/ Sodium Chloride (Iv D5% - 1/2 NS) 1,015 ml @ 50 mls/hr [id number] 11/23/16 19:00 11/25/16 17:58 50 MLS/HR Sodium Chloride 1,000 ml @ 620 mls/hr Q1H37M 11/21/16 00:00 11/21/16 01:00 DC 11/21/16 00:00 620 MLS/HR Sodium Chloride (Iv Sodium Chloride 0.9% 1000ml Bag) 1,000 ml @ 100 mls/hr Q10H 11/20/16 23:06 11/21/16 05:43 DC 11/21/16 02:54 100 MLS/HR Sulfur Hexafluoride Microspheres (Lumason) 25 mg 1X ONCE 11/21/16 16:15 11/21/16 16:19 DC 11/21/16 16:15 25 MG Tobramycin Sulfate 1 each 1 each 1X ONCE 11/21/16 12:00 11/21/16 12:01 Cancel Tobramycin Sulfate 250 mg/ Sodium Chloride 106.25 ml @ 106.25 mls/hr 1X ONCE 11/21/16 00:00 11/21/16 00:59 DC 11/20/16 23:31 106.25 MLS/HR Tobramycin Sulfate/Sodium Chloride (Nebcin/Iv Sodium Chloride 0.9% 100ml) 105.25 ml @ 105.25 mls/hr Q48H 11/22/16 23:00 11/22/16 23:00 DC Tobramycin Sulfate (Nebcin Per Pharmacy) 1 each PRN DAILY PRN 11/20/16 23:15 11/21/16 10:49 DC 11/21/16 03:25 1 EACH LAB Lab: Laboratory Tests Test 11/25/16 18:55 White Blood Count 13.2x10^3/uL (4.0-11.0) Red Blood Count 5.04x10^6/uL (3.50-5.40) Hemoglobin 15.5g/dL (12.0-15.5) Hematocrit 47.0% (36.0-47.0) Mean Corpuscular Volume 93fL (79-100) Mean Corpuscular Hemoglobin 31pg (25-35) Mean Corpuscular Hemoglobin Concent 33g/dL (31-37) Red Cell Distribution Width 15.2% (11.5-14.5) Platelet Count 281x10^3/uL (140-400) Neutrophils (%) (Auto) 78% (31-73) Lymphocytes (%) (Auto) 11% (24-48) Monocytes (%) (Auto) 9% (0-9) Eosinophils (%) (Auto) 2% (0-3) Basophils (%) (Auto) 0% (0-3) Neutrophils # (Auto) 10.3x10^3uL (1.8-7.7) Lymphocytes # (Auto) 1.5x10^3/uL (1.0-4.8) Monocytes # (Auto) 1.1x10^3/uL (0.0-1.1) Eosinophils # (Auto) 0.2x10^3/uL (0.0-0.7) Basophils # (Auto) 0.1x10^3/uL (0.0-0.2) Sodium Level 135mmol/L (136-145) Potassium Level 4.3mmol/L (3.5-5.1) Chloride Level 102mmol/L (98-107) Carbon Dioxide Level 22mmol/L (21-32) Anion Gap 11 (6-14) Blood Urea Nitrogen 6mg/dL (7-20) Creatinine 0.5mg/dL (0.6-1.0) Estimated GFR (Cockcroft-Gault) 119.6 Glucose Level 134mg/dL (70-99) Calcium Level 8.7mg/dL (8.5-10.1) DAISY HOLLIS MD Nov 26, 2016 11:26
[2016-11-26] MEDS: POTASSIUM CHLORIDE 30 MEQ in IV DEXTROSE 5 %-0.45 % NACL 1,000 ML IV SCH (12:02)
--- NOTE | 2016-11-26 13:39 | DS ---
DATE OF DISCHARGE: 11/26/2016 PRIMARY DIAGNOSIS: Sepsis. ADDITIONAL DIAGNOSES: Lactic acidosis; acute renal failure; leukocytosis; diabetes; likely of left lower lobe pneumonia; history of hypertension, non-ST elevated ME; hypokalemia, resolved; and paroxysmal atrial fibrillation. CHIEF COMPLAINT AND HISTORY OF PRESENT ILLNESS: This is a 76-year-old white female, which we forwarded to [facility], had fever, decreased mental status and was transferred to the Emergency Room where she was found to have leukocytosis, sepsis, likely from a pulmonary source with negative blood cultures throughout the stay. SUMMARY OF STAY: The patient was admitted and treated with antibiotics throughout the stay, improvement gradually to where she was awake and alert, but primarily nonverbal. She initially had acute renal failure, which resolved during the stay and hypokalemia, which resolved and non-ST elevated ME with Cardiology following with no further treatment needed at this point in time. Did have a little better of paroxysmal atrial fibrillation, which was self-resolving. She was quite hypokalemia and this was replacement with improvement in the same. She ran good sugars throughout the stay, was transitioned to p.o. Augmentin; however, the white count still decreasing down to 13,000 on the day of discharge and it was felt she could go another week of Augmentin, back to the longterm with close followup there and this was accomplished. DISPOSITION: The patient is discharged back to the longterm. DIET: As tolerated. ACTIVITY: As tolerated, regular meds +1 week of Augmentin 875 mg b.i.d. DAISY HOLLIS MD DR: SHAKILA/sylvia JOB#: [id number] / [id number]
== END 2016-11-26 16:30 | DRG 871 ==
LOC: ER 21:40 → 2 NORTH 23:06
PROVIDERS: ADMIT Family Medicine; ATTEND Family Medicine
DX: A41.9 Sepsis, unspecified organism (principal); I21.4 Non-ST elevation (NSTEMI) myocardial infarction; J18.9 Pneumonia, unspecified organism; E87.0 Hyperosmolality and hypernatremia; N17.9 Acute kidney failure, unspecified; E87.2 Acidosis; E78.5 Hyperlipidemia, unspecified; E83.42 Hypomagnesemia; E78.00 Pure hypercholesterolemia, unspecified; E11.9 Type 2 diabetes mellitus without complications; E86.0 Dehydration; E87.6 Hypokalemia; F03.90 Unspecified dementia, unspecified severity, without behavioral disturbance, psychotic disturbance, mood disturbance, and anxiety; I10 Essential (primary) hypertension; I48.0 Paroxysmal atrial fibrillation; Y95 Nosocomial condition; F32.9 Major depressive disorder, single episode, unspecified; K59.00 Constipation, unspecified; M19.90 Unspecified osteoarthritis, unspecified site; R13.10 Dysphagia, unspecified; R62.7 Adult failure to thrive; Z90.49 Acquired absence of other specified parts of digestive tract; Z79.82 Long term (current) use of aspirin
CPT/HCPCS: 99285; C8929; 36415; 36600; 70450; 71010; 76705; 80048; 80053; 80076; 81001; 82805; 82947; 83605; 83735; 84132; 84443; 84484; 85007; 85027; 87040; 87205; 87324; 87641; 87804; 93005; 96361; 96365; 96366; 96368; J2543; J3490; J7030; J7060; Q9950